=== PATIENT | male | born 1960 | race Caucasian/White ===

== ENCOUNTER → 2017-01-16 | Day surgery (SDC) | payer BC ==
[~2017-01-16] VITALS: Ht 172.7 cm; Wt 81.2 kg
[~2017-01-16] MED LIST: COLACE100 MG PO; NORCO 5-325 TA1 EACH PO
--- NOTE | ~2017-01-16 | OR ---
PATIENT'S NAME: SOL SINGH [facility] AGE: 56 Y [address] ROOM: [place] [id number] [place] [facility] [place]: 01/16/[place] OR/Procedure Report DISCHARGE DATE: FAMILY PHYSICIAN: , FAMILIA ATTENDING PHYSICIAN: KITTY BHATIA SURGEON: Kitty Bhatia MD CARGO BROKER: DATE OF PROCEDURE: 01/16/2017 PREOPERATIVE DIAGNOSIS: 1. Right spermatocele. POSTOPERATIVE DIAGNOSIS: 1. Right spermatocele. 2. Right testicular appendage. ANESTHESIA: Administered general. INDICATIONS FOR PROCEDURE: The patient is a pleasant 56-year-old male with history of right spermatocele. The patient was explained the risks, benefits, indications, and alternatives to above procedure and wished proceed and consented freely. OPERATIVE PROCEDURES: 1. Right spermatocelectomy. 2. Excision of right testicular appendage. DESCRIPTION OF OPERATION: The patient was brought back to the operating room, where he was placed on the OR table in the supine position. A surgical time- out was called where the patient identification, surgical site, and procedure were then verified. We also did verify that the patient received an IV cephalosporin antibiotic within an hour of beginning the procedure. The patient was then prepped and draped in the usual sterile fashion. I then began by making a 3 cm transverse right scrotal incision. I then deepened this down through the dartos fascia and was able to deliver the testicle. I then utilized the bipolar electrocautery to carefully mobilize the spermatocele down to a small neck with careful dissection. I then over sewed the neck with a Vicryl suture. I then carefully inspected the testicle, and it was without any testicular masses and he did have a small testicular appendage and I carefully excised this testicular appendage to prevent future torsion of the testicular appendage. Once I was satisfied with hemostasis in the wound and after we had irrigated the wound with antibiotics irrigation. The testicle was then replaced back into its normal anatomic position. The dartos fascia was reapproximated with a Vicryl suture. A 0.25% Marcaine local anesthetic was then injected along the incision site. The skin was then PATIENT'S NAME: SOL SINGH [facility] AGE: 56 Y [address] ROOM: [place] [id number] [place] [facility] [place]: 01/16/2017 OR/Procedure Report DISCHARGE DATE: FAMILY PHYSICIAN: FAMILIA GOETZ ATTENDING PHYSICIAN: KITTY BHATIA reapproximated with a chromic suture. Bacitracin ointment was then applied to the incision site. The patient was then awoken from general anesthesia, where he was extubated then transferred to the recovery bed and transported to recovery room in good condition. The patient did tolerate the procedure well. COMPLICATIONS: None. SPECIMENS: Right spermatocele. ESTIMATED BLOOD LOSS: Minimal. FOLLOWUP PLAN: We will plan to have the patient follow up for routine postoperative visit in approximately 3 months from now. KITTY BHATIA MD GP/zahraal /[id number] CC: Greyson Johnson MD d: 01/16/17 1250 t: 01/17/17 1723, OPERATIVE SUMMARY
[2017-01-16 06:14] LABS: BASOPHIL # 0.1 K/uL (0.0-0.2); BASOPHIL % 1.2 %; EOSINOPHIL # 0.3 K/uL (0.0-0.5); EOSINOPHIL % 4.1 %; HEMATOCRIT 40.4 % (37.0-53.0); HEMOGLOBIN 13.8 g/dL (12.0-17.0); IMMATURE GRANULOCYTE # 0.1 K/uL (0.0-0.3); LYMPHOCYTE # 1.5 K/uL (0.8-4.0); LYMPHOCYTE % 22.6 %; MCH 29.6 pg (27.0-34.0); MCHC 34.2 gm/dL (32.0-36.5); MCV 86.5 fl (83.0-98.0); MONOCYTE # 0.6 K/uL (0.0-1.0); MONOCYTE % 8.6 %; MPV 9.7 fl (9.4-12.4); NEUTROPHIL # (ANC) 4.2 K/uL (1.4-9.0); NEUTROPHIL % 62.5 %; NRBC % 0 /100WBC (0-0.00); PLATELET COUNT 167 K/uL (150-450); RBC 4.67 M/uL (4.00-6.00); RDW-CV 12.8 % (11.9-14.6); WBC 6.8 K/uL (4.0-11.0)
[2017-01-16 06:28] LABS: ALBUMIN 3.8 gm/dL (3.5-5.0); ALK PHOS 61 IU/L (33-138); ALT 25 IU/L (12-78); ANION GAP 9.8 (10.0-19.0); AST 16 IU/L (10-40); BLOOD UREA NITROGEN 14 mg/dL (6-24); CALCIUM 8.4 mg/dL (8.5-10.5); CHLORIDE 109 mMol/L (96-110); CO2 27 mMol/L (22-32); CREATININE 1.2 mg/dL (0.6-1.3); ESTIMATED GFR (MDRD EQUATION) > 60; POTASSIUM 3.8 mMol/L (3.7-5.1); SODIUM 142 mMol/L (135-145); TOTAL BILIRUBIN 1.1 mg/dL (0.0-1.5); TOTAL PROTEIN 6.4 g/dL (6.0-8.4)
== END ==
LOC: GPOC 01-10 14:00 → GSDC 05:13
PROVIDERS: Urology
PROC: 0VBJ0ZZ Excision of Right Epididymis, Open Approach (ICD-10-PCS; principal; 2017-01-16)
PROC: 0VB90ZZ Excision of Right Testis, Open Approach (ICD-10-PCS; 2017-01-16)
DX: N43.40 Spermatocele of epididymis, unspecified (principal); Q55.29 Other congenital malformations of testis and scrotum; Z98.890 Other specified postprocedural states
CPT/HCPCS: J0690; J2001; J7120